=== PATIENT | female | born 1940 | race Caucasian/White ===

== ENCOUNTER 2016-03-14 14:28 | Inpatient (IN) | payer MEDICARE, BC ==
[~2016-03-14] VITALS: Ht 160 cm; Wt 56.3 kg
[2016-03-14] MEDS ORDERED: DUONEB INH ONE (15:40)
[2016-03-14] MEDS ORDERED: Furosemide 40 MG/4 ML VIAL ONE (17:26)
[2016-03-14] MEDS ORDERED: SALINE FLUSH 10 ML FLUSH PRN (19:20)
[2016-03-14] MEDS ORDERED: BUMETANIDE 1 MG/4 ML VIAL IV SCH (20:58)
[2016-03-14] MEDS ORDERED: METOLAZONE 2.5 MG TAB PO ONE (21:05)
[2016-03-14] MEDS ORDERED: WARFARIN 4 MG TAB PO ONE (21:15)
[2016-03-14 21:20] VITALS: BP_SYST 132; RESP 20; TEMP 97.7
[2016-03-14 21:21] VITALS: BMI 27.6
[2016-03-14] MEDS: AZITHROMYCIN 250 MG TAB PO SCH (21:43)
[2016-03-14] MEDS: SALINE FLUSH 10 ML FLUSH SCH (21:44)
[2016-03-14] MEDS ORDERED: ENOXAPARIN 60 MG/0.6 ML SYR SUBQ SCH (22:00)
[2016-03-14] MEDS: NEB-ALBUTEROL 2.5 MG/3 ML INH SCH (22:53)
[2016-03-14] MEDS: NEB-ATROVENT INH SCH (22:53)
[2016-03-14 22:59] VITALS: RESP 22
[2016-03-14 23:12] VITALS: BP_SYST 112; RESP 18; TEMP 98
[2016-03-15] VITALS (13 sets, daily range): BP systolic 104–127; RESP 16–33; TEMP 98–98.5; Ht 160 cm; Wt 56.3 kg
[2016-03-15] MEDS: Furosemide 20 MG/2 ML VIAL IV SCH ×4 (00:51→23:34)
[2016-03-15] MEDS: NEB-ATROVENT INH SCH ×6 (02:15→22:24)
[2016-03-15] MEDS: NEB-ALBUTEROL 2.5 MG/3 ML INH SCH ×6 (02:15→22:24)
[2016-03-15] MEDS: SODIUM CHLORIDE 0.9% FLUSH BAG 500 ML IV SCH (06:00)
[2016-03-15] MEDS: LEVOTHYROXINE 0.05 MG TAB PO SCH (06:10)
[2016-03-15] MEDS ORDERED: PRAVASTATIN 40 MG TAB PO SCH (09:00)
[2016-03-15] MEDS ORDERED: DIGOXIN 0.125 MG TAB PO SCH (09:00)
[2016-03-15] MEDS: AZITHROMYCIN 250 MG TAB PO SCH (10:02)
[2016-03-15] MEDS: KCL CR 10 MEQ TAB PO SCH (10:03)
[2016-03-15] MEDS: DIGOXIN 0.125 MG TAB PO SCH (10:03)
[2016-03-15] MEDS: SALINE FLUSH 10 ML FLUSH SCH ×2 (10:04→21:20)
[2016-03-15] MEDS: PREDNISONE 10 MG TAB PO SCH (17:13)
[2016-03-15] MEDS ORDERED: ENOXAPARIN 60 MG/0.6 ML SYR SUBQ SCH (19:30)
[2016-03-15] MEDS ORDERED: PANTOPRAZOLE 40 MG TAB PO STA (20:02)
[2016-03-15] MEDS ORDERED: APIXABAN 2.5 MG TAB PO SCH (21:00)
[2016-03-15] MEDS: FAMOTIDINE 10 MG TAB PO SCH (21:19)
[2016-03-15] MEDS: PRAVASTATIN 40 MG TAB PO SCH (21:19)
[2016-03-16] VITALS (15 sets, daily range): BP systolic 96–120; RESP 13–21; TEMP 96–98.4
[2016-03-16] MEDS: NEB-ATROVENT INH SCH ×3 (02:04→11:00)
[2016-03-16] MEDS: NEB-ALBUTEROL 2.5 MG/3 ML INH SCH ×3 (02:04→11:00)
[2016-03-16] MEDS: SODIUM CHLORIDE 0.9% FLUSH BAG 500 ML IV SCH (06:00)
[2016-03-16] MEDS: LEVOTHYROXINE 0.05 MG TAB PO SCH (06:33)
[2016-03-16] MEDS: PANTOPRAZOLE 40 MG TAB PO SCH (06:33)
[2016-03-16] MEDS: SALINE FLUSH 10 ML FLUSH SCH ×2 (09:46→20:41)
[2016-03-16] MEDS: FAMOTIDINE 10 MG TAB PO SCH ×2 (09:47→22:30)
[2016-03-16] MEDS: KCL CR 10 MEQ TAB PO SCH (09:47)
[2016-03-16] MEDS: PREDNISONE 10 MG TAB PO SCH (09:47)
[2016-03-16] MEDS: AZITHROMYCIN 250 MG TAB PO SCH (09:47)
[2016-03-16] MEDS ORDERED: MISSING DOSE XX ONE ×3 (09:55→20:40)
[2016-03-16] MEDS: Furosemide 20 MG/2 ML VIAL IV SCH (11:20)
[2016-03-16] MEDS: DIGOXIN 0.125 MG TAB PO SCH (11:30)
[2016-03-16] MEDS: DUONEB INH SCH ×4 (11:51→22:41)
[2016-03-16] MEDS: NEB-NACL 3% 4 ML NEBU INH SCH ×3 (11:51→22:41)
[2016-03-16] MEDS: Furosemide 20 MG TAB PO SCH (16:43)
[2016-03-16] MEDS: PRAVASTATIN 40 MG TAB PO SCH (20:41)
[2016-03-17] MEDS: Furosemide 20 MG TAB PO SCH ×2 (00:06→07:59)
[2016-03-17] MEDS: DUONEB INH SCH ×6 (02:56→22:45)
[2016-03-17 03:11] VITALS: BP_SYST 122; RESP 16; TEMP 97.3
[2016-03-17] MEDS: PANTOPRAZOLE 40 MG TAB PO SCH (06:04)
[2016-03-17] MEDS: SODIUM CHLORIDE 0.9% FLUSH BAG 500 ML IV SCH (06:04)
[2016-03-17] MEDS: LEVOTHYROXINE 0.075 MG TAB PO SCH (06:05)
[2016-03-17] MEDS: NEB-NACL 3% 4 ML NEBU INH SCH ×4 (07:30→22:46)
[2016-03-17] MEDS: AZITHROMYCIN 250 MG TAB PO SCH (07:59)
[2016-03-17] MEDS: SALINE FLUSH 10 ML FLUSH SCH ×2 (07:59→20:13)
[2016-03-17] MEDS: PREDNISONE 10 MG TAB PO SCH (07:59)
[2016-03-17 08:03] VITALS: BP_SYST 114; RESP 16; TEMP 97.8
[2016-03-17] MEDS: FAMOTIDINE 10 MG TAB PO SCH ×2 (09:55→20:13)
[2016-03-17 11:00] VITALS: BP_SYST 116; RESP 16
[2016-03-17 15:32] VITALS: BP_SYST 118; RESP 18
[2016-03-17] MEDS ORDERED: Furosemide 20 MG/2 ML VIAL IV SCH (16:00)
[2016-03-17] MEDS ORDERED: Furosemide 20 MG TAB PO SCH (17:00)
[2016-03-17] MEDS: DAKIN'S 0.0625% 480 ML TOPICAL SCH ×2 (17:22→20:14)
[2016-03-17 20:06] VITALS: BP_SYST 110; RESP 20; TEMP 94.1
[2016-03-17] MEDS: PRAVASTATIN 40 MG TAB PO SCH (20:13)
[2016-03-17] MEDS: DOXYCYCLINE 100 MG TAB PO SCH (20:13)
[2016-03-17 23:43] VITALS: BP_SYST 124; RESP 20; TEMP 94.4
[2016-03-18] MEDS: DUONEB INH SCH ×6 (02:40→22:45)
[2016-03-18 03:31] VITALS: BP_SYST 121; RESP 18; TEMP 97.5
[2016-03-18] MEDS: SODIUM CHLORIDE 0.9% FLUSH BAG 500 ML IV SCH (05:32)
[2016-03-18] MEDS: NEB-NACL 3% 4 ML NEBU INH SCH ×4 (06:19→22:45)
[2016-03-18] MEDS: LEVOTHYROXINE 0.075 MG TAB PO SCH (06:32)
[2016-03-18] MEDS: PANTOPRAZOLE 40 MG TAB PO SCH (06:32)
[2016-03-18 07:00] VITALS: BP_SYST 119; RESP 18; TEMP 97.5
[2016-03-18] MEDS ORDERED: Meropenem 500 MG in SODIUM CHLORIDE 0.9% 100 ML IV SCH (08:00)
[2016-03-18] MEDS: SALINE FLUSH 10 ML FLUSH SCH ×2 (08:44→20:19)
[2016-03-18] MEDS: DOXYCYCLINE 100 MG TAB PO SCH ×2 (08:44→20:20)
[2016-03-18] MEDS: PREDNISONE 10 MG TAB PO SCH (08:44)
[2016-03-18] MEDS: FAMOTIDINE 10 MG TAB PO SCH ×2 (08:44→20:21)
[2016-03-18] MEDS ORDERED: Furosemide 40 MG/4 ML VIAL IV ONE (11:00)
[2016-03-18 11:18] VITALS: BP_SYST 125; RESP 18; TEMP 97.4
[2016-03-18] MEDS ORDERED: MISSING DOSE XX ONE (13:45)
[2016-03-18] MEDS: DAKIN'S 0.0625% 480 ML TOPICAL SCH ×2 (14:37→21:00)
[2016-03-18 15:33] VITALS: BP_SYST 134; RESP 18; TEMP 97.4
[2016-03-18] MEDS: Furosemide 100 MG/10 ML VIAL IV SCH (16:52)
[2016-03-18] MEDS ORDERED: METOLAZONE 5 MG TAB PO ONE (17:40)
[2016-03-18 19:10] VITALS: BP_SYST 139; RESP 18; TEMP 97.5
[2016-03-18] MEDS: PRAVASTATIN 40 MG TAB PO SCH (20:20)
[2016-03-19] VITALS (9 sets, daily range): BP systolic 126–146; RESP 16–22; TEMP 97.3–97.6
[2016-03-19] MEDS: Furosemide 100 MG/10 ML VIAL IV SCH ×4 (00:10→16:30)
[2016-03-19] MEDS: DUONEB INH SCH ×6 (02:52→22:38)
[2016-03-19] MEDS: SODIUM CHLORIDE 0.9% FLUSH BAG 500 ML IV SCH (05:13)
[2016-03-19] MEDS: LEVOTHYROXINE 0.075 MG TAB PO SCH (06:33)
[2016-03-19] MEDS: PANTOPRAZOLE 40 MG TAB PO SCH (06:33)
[2016-03-19] MEDS: NEB-NACL 3% 4 ML NEBU INH SCH ×4 (07:58→22:38)
[2016-03-19] MEDS: DAKIN'S 0.0625% 480 ML TOPICAL SCH ×2 (09:00→21:00)
[2016-03-19] MEDS: FAMOTIDINE 10 MG TAB PO SCH ×2 (09:04→21:00)
[2016-03-19] MEDS: DOXYCYCLINE 100 MG TAB PO SCH ×2 (09:04→21:00)
[2016-03-19] MEDS: PREDNISONE 10 MG TAB PO SCH (09:04)
[2016-03-19] MEDS: SALINE FLUSH 10 ML FLUSH SCH ×2 (09:05→20:00)
[2016-03-19] MEDS: DIGOXIN 0.125 MG TAB PO SCH (11:55)
[2016-03-19] MEDS: METOLAZONE 5 MG TAB PO SCH ×2 (11:55→20:00)
[2016-03-19] MEDS: PRAVASTATIN 40 MG TAB PO SCH (21:00)
[2016-03-20] VITALS (11 sets, daily range): BP systolic 121–138; RESP 16–22; TEMP 97.3–97.8
[2016-03-20] MEDS: Furosemide 100 MG/10 ML VIAL IV SCH ×3 (01:27→16:14)
[2016-03-20] MEDS: SODIUM CHLORIDE 0.9% FLUSH BAG 500 ML IV SCH (01:57)
[2016-03-20] MEDS: DUONEB INH SCH ×6 (02:13→22:36)
[2016-03-20] MEDS: PANTOPRAZOLE 40 MG TAB PO SCH (06:11)
[2016-03-20] MEDS: LEVOTHYROXINE 0.075 MG TAB PO SCH (06:11)
[2016-03-20] MEDS: NEB-NACL 3% 4 ML NEBU INH SCH ×4 (07:26→22:37)
[2016-03-20] MEDS: METOLAZONE 5 MG TAB PO SCH ×2 (08:35→20:49)
[2016-03-20] MEDS: FAMOTIDINE 10 MG TAB PO SCH ×2 (08:35→20:49)
[2016-03-20] MEDS: SALINE FLUSH 10 ML FLUSH SCH ×2 (08:35→20:50)
[2016-03-20] MEDS: DOXYCYCLINE 100 MG TAB PO SCH ×2 (08:35→20:49)
[2016-03-20] MEDS: PREDNISONE 10 MG TAB PO SCH (08:35)
[2016-03-20] MEDS ORDERED: MISSING DOSE XX ONE (15:20)
[2016-03-20] MEDS: DAKIN'S 0.0625% 480 ML TOPICAL SCH ×2 (16:15→21:00)
[2016-03-20] MEDS: PRAVASTATIN 40 MG TAB PO SCH (20:49)
[2016-03-21] VITALS (8 sets, daily range): BP systolic 109–133; RESP 11–24; TEMP 97.3–98.6
[2016-03-21] MEDS: Furosemide 100 MG/10 ML VIAL IV SCH ×4 (00:24→23:46)
[2016-03-21] MEDS: DUONEB INH SCH ×6 (02:12→23:26)
[2016-03-21] MEDS: SODIUM CHLORIDE 0.9% FLUSH BAG 500 ML IV SCH (06:00)
[2016-03-21] MEDS: LEVOTHYROXINE 0.075 MG TAB PO SCH (06:41)
[2016-03-21] MEDS: PANTOPRAZOLE 40 MG TAB PO SCH (06:41)
[2016-03-21] MEDS: NEB-NACL 3% 4 ML NEBU INH SCH ×4 (06:53→23:27)
[2016-03-21] MEDS: METOLAZONE 5 MG TAB PO SCH ×2 (09:03→21:12)
[2016-03-21] MEDS: FAMOTIDINE 10 MG TAB PO SCH ×2 (09:04→21:12)
[2016-03-21] MEDS: PREDNISONE 10 MG TAB PO SCH (09:04)
[2016-03-21] MEDS: DOXYCYCLINE 100 MG TAB PO SCH ×2 (09:04→21:12)
[2016-03-21] MEDS: SALINE FLUSH 10 ML FLUSH SCH ×2 (09:04→22:02)
[2016-03-21] MEDS: DAKIN'S 0.0625% 480 ML TOPICAL SCH ×2 (09:05→21:13)
[2016-03-21] MEDS: DIGOXIN 0.125 MG TAB PO SCH (12:29)
[2016-03-21] MEDS: PRAVASTATIN 40 MG TAB PO SCH (21:12)
[2016-03-22] VITALS (9 sets, daily range): BP systolic 115–132; RESP 11–18; TEMP 97.2–98.1
[2016-03-22] MEDS: DUONEB INH SCH ×6 (02:31→22:46)
[2016-03-22] MEDS: SODIUM CHLORIDE 0.9% FLUSH BAG 500 ML IV SCH (02:42)
[2016-03-22] MEDS: LEVOTHYROXINE 0.075 MG TAB PO SCH (05:57)
[2016-03-22] MEDS: PANTOPRAZOLE 40 MG TAB PO SCH (05:57)
[2016-03-22] MEDS: NEB-NACL 3% 4 ML NEBU INH SCH ×4 (06:53→22:46)
[2016-03-22] MEDS: FAMOTIDINE 10 MG TAB PO SCH ×2 (08:20→20:02)
[2016-03-22] MEDS: Furosemide 100 MG/10 ML VIAL IV SCH ×3 (08:20→23:18)
[2016-03-22] MEDS: DOXYCYCLINE 100 MG TAB PO SCH ×2 (08:21→20:01)
[2016-03-22] MEDS: METOLAZONE 5 MG TAB PO SCH (08:21)
[2016-03-22] MEDS: PREDNISONE 10 MG TAB PO SCH (08:21)
[2016-03-22] MEDS: SALINE FLUSH 10 ML FLUSH SCH ×2 (08:28→20:02)
[2016-03-22] MEDS ORDERED: MISSING DOSE XX ONE (09:30)
[2016-03-22] MEDS: DAKIN'S 0.0625% 480 ML TOPICAL SCH ×2 (10:13→20:03)
[2016-03-22] MEDS: PRAVASTATIN 40 MG TAB PO SCH (20:01)
[2016-03-23] VITALS (7 sets, daily range): BP systolic 119–131; RESP 15–18; TEMP 97.6–98.3
[2016-03-23] MEDS: DUONEB INH SCH ×6 (02:19→23:22)
[2016-03-23] MEDS: SODIUM CHLORIDE 0.9% FLUSH BAG 500 ML IV SCH (04:51)
[2016-03-23] MEDS: PANTOPRAZOLE 40 MG TAB PO SCH (06:43)
[2016-03-23] MEDS: LEVOTHYROXINE 0.075 MG TAB PO SCH (06:43)
[2016-03-23] MEDS: NEB-NACL 3% 4 ML NEBU INH SCH ×4 (07:05→23:22)
[2016-03-23] MEDS: SALINE FLUSH 10 ML FLUSH SCH ×2 (08:24→21:37)
[2016-03-23] MEDS: DOXYCYCLINE 100 MG TAB PO SCH ×2 (08:28→21:37)
[2016-03-23] MEDS: PREDNISONE 10 MG TAB PO SCH (08:28)
[2016-03-23] MEDS: FAMOTIDINE 10 MG TAB PO SCH ×2 (08:28→21:37)
[2016-03-23] MEDS: Furosemide 100 MG/10 ML VIAL IV SCH (08:28)
[2016-03-23] MEDS: DAKIN'S 0.0625% 480 ML TOPICAL SCH ×2 (08:38→21:37)
[2016-03-23] MEDS: DIGOXIN 0.125 MG TAB PO SCH (11:58)
[2016-03-23] MEDS: Furosemide 80 MG TAB PO SCH (16:59)
[2016-03-23] MEDS ORDERED: NEB-NACL 3% 4 ML NEBU INH SCH (19:10)
[2016-03-23] MEDS: PRAVASTATIN 40 MG TAB PO SCH (21:37)
[2016-03-24] VITALS (7 sets, daily range): BP systolic 110–134; RESP 16–20; TEMP 97.7–98.6
[2016-03-24] MEDS: DUONEB INH SCH ×3 (02:39→19:14)
[2016-03-24] MEDS: SODIUM CHLORIDE 0.9% FLUSH BAG 500 ML IV SCH (05:04)
[2016-03-24] MEDS: LEVOTHYROXINE 0.075 MG TAB PO SCH (05:50)
[2016-03-24] MEDS: PANTOPRAZOLE 40 MG TAB PO SCH (05:50)
[2016-03-24] MEDS: NEB-NACL 3% 4 ML NEBU INH SCH ×3 (06:52→22:45)
[2016-03-24] MEDS: FAMOTIDINE 10 MG TAB PO SCH ×2 (08:29→19:36)
[2016-03-24] MEDS: DOXYCYCLINE 100 MG TAB PO SCH (08:29)
[2016-03-24] MEDS: SALINE FLUSH 10 ML FLUSH SCH ×2 (08:29→19:36)
[2016-03-24] MEDS: PREDNISONE 10 MG TAB PO SCH (08:29)
[2016-03-24] MEDS: Furosemide 80 MG TAB PO SCH ×2 (08:29→16:08)
[2016-03-24] MEDS: DAKIN'S 0.0625% 480 ML TOPICAL SCH ×2 (08:35→20:29)
[2016-03-24] MEDS: PRAVASTATIN 40 MG TAB PO SCH (19:36)
[2016-03-25] VITALS (8 sets, daily range): BP systolic 106–125; RESP 18–21; TEMP 97.5–98.2
[2016-03-25] MEDS: SODIUM CHLORIDE 0.9% FLUSH BAG 500 ML IV SCH (06:00)
[2016-03-25] MEDS: LEVOTHYROXINE 0.075 MG TAB PO SCH (06:53)
[2016-03-25] MEDS: PANTOPRAZOLE 40 MG TAB PO SCH (06:53)
[2016-03-25] MEDS: DUONEB INH SCH ×2 (07:05→18:44)
[2016-03-25] MEDS: NEB-NACL 3% 4 ML NEBU INH SCH ×3 (07:05→22:43)
[2016-03-25] MEDS: Furosemide 80 MG TAB PO SCH ×2 (10:09→16:24)
[2016-03-25] MEDS: FAMOTIDINE 10 MG TAB PO SCH ×2 (10:09→20:37)
[2016-03-25] MEDS: SALINE FLUSH 10 ML FLUSH SCH ×2 (10:09→20:36)
[2016-03-25] MEDS: DAKIN'S 0.0625% 480 ML TOPICAL SCH ×2 (10:10→20:50)
[2016-03-25] MEDS: PREDNISONE 10 MG TAB PO SCH (10:20)
[2016-03-25] MEDS: DIGOXIN 0.125 MG TAB PO SCH (13:06)
[2016-03-25] MEDS ORDERED: MISSING DOSE XX ONE (20:25)
[2016-03-25] MEDS: GUAIFENESIN ER 600 MG TABCR PO SCH (20:37)
[2016-03-25] MEDS: PRAVASTATIN 40 MG TAB PO SCH (20:37)
[2016-03-26] VITALS (7 sets, daily range): BP systolic 102–119; RESP 16–22; TEMP 97.4–97.9
[2016-03-26] MEDS: SODIUM CHLORIDE 0.9% FLUSH BAG 500 ML IV SCH (05:44)
[2016-03-26] MEDS: LEVOTHYROXINE 0.075 MG TAB PO SCH (06:31)
[2016-03-26] MEDS: PANTOPRAZOLE 40 MG TAB PO SCH (06:31)
[2016-03-26] MEDS: DUONEB INH SCH ×2 (07:16→19:05)
[2016-03-26] MEDS: NEB-NACL 3% 4 ML NEBU INH SCH ×3 (07:16→23:38)
[2016-03-26] MEDS: GUAIFENESIN ER 600 MG TABCR PO SCH ×2 (09:24→19:54)
[2016-03-26] MEDS: FAMOTIDINE 10 MG TAB PO SCH ×2 (09:24→19:54)
[2016-03-26] MEDS: Furosemide 80 MG TAB PO SCH (09:24)
[2016-03-26] MEDS: SALINE FLUSH 10 ML FLUSH SCH ×2 (09:25→23:34)
[2016-03-26] MEDS: PREDNISONE 20 MG TAB PO SCH (09:27)
[2016-03-26] MEDS: DAKIN'S 0.0625% 480 ML TOPICAL SCH ×2 (09:28→23:34)
[2016-03-26] MEDS ORDERED: ONDANSETRON 4 MG VIAL IV PRN (14:45)
[2016-03-26] MEDS: PRAVASTATIN 40 MG TAB PO SCH (19:55)
[2016-03-27] VITALS (8 sets, daily range): BP systolic 114–135; RESP 15–20; TEMP 97.6–98.2
[2016-03-27] MEDS: SODIUM CHLORIDE 0.9% FLUSH BAG 500 ML IV SCH (06:00)
[2016-03-27] MEDS: PANTOPRAZOLE 40 MG TAB PO SCH (06:34)
[2016-03-27] MEDS: LEVOTHYROXINE 0.075 MG TAB PO SCH (06:34)
[2016-03-27] MEDS: NEB-NACL 3% 4 ML NEBU INH SCH ×3 (07:30→23:06)
[2016-03-27] MEDS: DUONEB INH SCH ×2 (07:30→19:03)
[2016-03-27] MEDS: GUAIFENESIN ER 600 MG TABCR PO SCH ×2 (08:13→20:24)
[2016-03-27] MEDS: PREDNISONE 20 MG TAB PO SCH (08:13)
[2016-03-27] MEDS: SALINE FLUSH 10 ML FLUSH SCH ×2 (08:14→20:36)
[2016-03-27] MEDS: Furosemide 40 MG TAB PO SCH ×2 (08:14→18:35)
[2016-03-27] MEDS: FAMOTIDINE 10 MG TAB PO SCH ×2 (08:14→20:25)
[2016-03-27] MEDS: DAKIN'S 0.0625% 480 ML TOPICAL SCH (13:04)
[2016-03-27] MEDS: DIGOXIN 0.125 MG TAB PO SCH (13:04)
[2016-03-27] MEDS ORDERED: BISACODYL 10 MG SUPP RECTAL ONE (16:35)
[2016-03-27] MEDS: PRAVASTATIN 40 MG TAB PO SCH (20:24)
[2016-03-27] MEDS: POLYETHYLENE GLYCOL 17 GM PACKET PO SCH (20:25)
[2016-03-27] MEDS: DOCUSATE SOD 100 MG CAP PO SCH (20:25)
[2016-03-27] MEDS: BACITRACIN OINT TOPICAL SCH (21:50)
[2016-03-28] VITALS (9 sets, daily range): BP systolic 114–141; RESP 18–20; TEMP 97.3–97.8
[2016-03-28] MEDS: SODIUM CHLORIDE 0.9% FLUSH BAG 500 ML IV SCH (04:46)
[2016-03-28] MEDS: PANTOPRAZOLE 40 MG TAB PO SCH (06:12)
[2016-03-28] MEDS: LEVOTHYROXINE 0.075 MG TAB PO SCH (06:12)
[2016-03-28] MEDS: DUONEB INH SCH ×2 (06:49→19:26)
[2016-03-28] MEDS: NEB-NACL 3% 4 ML NEBU INH SCH ×3 (06:49→19:27)
[2016-03-28] MEDS: DOCUSATE SOD 100 MG CAP PO SCH ×2 (09:07→20:32)
[2016-03-28] MEDS: SALINE FLUSH 10 ML FLUSH SCH ×2 (09:07→20:35)
[2016-03-28] MEDS: GUAIFENESIN ER 600 MG TABCR PO SCH ×2 (09:07→20:32)
[2016-03-28] MEDS: PREDNISONE 20 MG TAB PO SCH (09:08)
[2016-03-28] MEDS: Furosemide 40 MG TAB PO SCH ×2 (09:08→17:01)
[2016-03-28] MEDS: FAMOTIDINE 10 MG TAB PO SCH ×2 (09:09→20:32)
[2016-03-28] MEDS: POLYETHYLENE GLYCOL 17 GM PACKET PO SCH (20:32)
[2016-03-28] MEDS: PRAVASTATIN 40 MG TAB PO SCH (20:32)
[2016-03-28] MEDS: BACITRACIN OINT TOPICAL SCH (20:32)
[2016-03-29] VITALS (7 sets, daily range): BP systolic 104–128; RESP 16–20; TEMP 97.4–97.6
[2016-03-29] MEDS: SODIUM CHLORIDE 0.9% FLUSH BAG 500 ML IV SCH (06:00)
[2016-03-29] MEDS: LEVOTHYROXINE 0.075 MG TAB PO SCH (06:19)
[2016-03-29] MEDS: PANTOPRAZOLE 40 MG TAB PO SCH (06:19)
[2016-03-29] MEDS: NEB-NACL 3% 4 ML NEBU INH SCH ×2 (07:09→14:40)
[2016-03-29] MEDS: DUONEB INH SCH (07:09)
[2016-03-29] MEDS ORDERED: PREDNISONE 10 MG TAB PO SCH (09:00)
[2016-03-29] MEDS: GUAIFENESIN ER 600 MG TABCR PO SCH (09:03)
[2016-03-29] MEDS: Furosemide 40 MG TAB PO SCH (09:03)
[2016-03-29] MEDS: SALINE FLUSH 10 ML FLUSH SCH (09:03)
[2016-03-29] MEDS: DOCUSATE SOD 100 MG CAP PO SCH (09:03)
[2016-03-29] MEDS: FAMOTIDINE 10 MG TAB PO SCH (09:03)
[2016-03-29] MEDS: DIGOXIN 0.125 MG TAB PO SCH (13:40)
== END 2016-03-29 17:40 | DRG 291 ==
LOC: ENRESERV → ENRESERVDT → ENRESERVTM → ER 14:28 → EMR 19:19 → ENPENDDIS 19:19 → PCU2 20:42 → ICU 03-15 20:17 → 4THE 03-16 12:14
PROVIDERS: ADMIT Hospitalist; ATTEND Hospitalist
DX: I13.0 Hypertensive heart and chronic kidney disease with heart failure and stage 1 through stage 4 chronic kidney disease, or unspecified chronic kidney disease (principal); I50.43 Acute on chronic combined systolic (congestive) and diastolic (congestive) heart failure; J96.21 Acute and chronic respiratory failure with hypoxia; N17.9 Acute kidney failure, unspecified; J44.0 Chronic obstructive pulmonary disease with (acute) lower respiratory infection; J44.1 Chronic obstructive pulmonary disease with (acute) exacerbation; I48.91 Unspecified atrial fibrillation; D46.9 Myelodysplastic syndrome, unspecified; F32.9 Major depressive disorder, single episode, unspecified; B88.8 Other specified infestations; N18.3 Chronic kidney disease, stage 3 (moderate); J20.9 Acute bronchitis, unspecified; Z79.01 Long term (current) use of anticoagulants; M19.90 Unspecified osteoarthritis, unspecified site; E78.5 Hyperlipidemia, unspecified; R04.0 Epistaxis; E66.9 Obesity, unspecified; Z68.27 Body mass index [BMI] 27.0-27.9, adult; Z91.14 Patient's other noncompliance with medication regimen; M81.0 Age-related osteoporosis without current pathological fracture; E03.9 Hypothyroidism, unspecified; M40.209 Unspecified kyphosis, site unspecified; Z86.73 Personal history of transient ischemic attack (TIA), and cerebral infarction without residual deficits; Z85.21 Personal history of malignant neoplasm of larynx; Z92.3 Personal history of irradiation; Z95.0 Presence of cardiac pacemaker; Z95.2 Presence of prosthetic heart valve
CPT/HCPCS: 36415; 36600; 71010; 71020; 71250; 80048; 80053; 80061; 80162; 81001; 82525; 82553; 82570; 82607; 82728; 82746; 82784; 82803; 82947; 83540; 83605; 83735; 83880; 83883; 84100; 84155; 84156; 84165; 84439; 84443; 84466; 84484; 84630; 85007; 85025; 85027; 85610; 85730; 86334; 87040; 87071; 87804; 93005; 93306; 94640; 94660; 94664; 94668; 94799; 96374; 99223; 99232; 99233; 99238